=== PATIENT | male | born 1985 | race Caucasian/White ===

== ENCOUNTER → 2019-03-03 | Outpatient (CLI) | payer OTHER | END | disposition home or self-care (01) | LOC: CFH 08:44 | PROVIDERS: ATTEND Nurse Practitioner ==

== ENCOUNTER 2019-04-05 18:30 | Emergency (ER) | payer OTHER ==
[~2019-04-05] VITALS: Ht 177.8 cm; Wt 92.2 kg
--- NOTE | 2019-04-05 18:39 | NUR ---
EKG performed in triage
--- NOTE | 2019-04-05 19:30 | NUR ---
PT AMBULATORY TO ED FROM HOME. C/O L SIDED SHARP CP. POINTS TO JUST UNDER NIPPLE. 8/10 PAIN. RECENT WRIST SX. C/O SOB, WORSE ON EXERT. LUNGS CTAB. SR MONITOR 90-100S. BROTHER HAD OPEN HEART SX 4 TIMES AT YOUNG AGE. PT SMOKER, NOW VAPSE. USED TO DO IV METH/IVDRUGS. QUIT TWO YEARS AGO. AWAITING PROVIDER. CALL [facility]RE[facility] IN [place]ACH.
[2019-04-05 19:48] LABS: BASOPHILS # (AUTO) 0.06 x10^3/uL (0-0.1); BASOPHILS % (AUTO) 0 % (0-1); EOSINOPHILS # (AUTO) 0.08 x10^3/uL (0-0.4); EOSINOPHILS % (AUTO) 1 % (1-7); LYMPHOCYTES # (AUTO) 2.09 x10^3/uL (1-3.4); LYMPHOCYTES % (AUTO) 16 % (22-44); MD NO; MEAN CORPUSCULAR HEMOGLOBIN 30.7 pg (27.5-34.5); MEAN CORPUSCULAR HGB CONC 33.6 g/dL (33.2-36.2); MEAN CORPUSCULAR VOLUME 91.2 fL (81-97); MONOCYTES # (AUTO) 0.82 x10^3/uL (0.2-0.8); MONOCYTES % (AUTO) 6 % (2-9); NEUTROPHILS # (AUTO) 9.93 x10^3/uL (1.8-6.8); NEUTROPHILS % (AUTO) 77 % (42-75); PLATELET COUNT 270 x10^3/uL (130-400); RED BLOOD COUNT 4.86 x10^6/uL (4.38-5.82); RED CELL DISTRIBUTION WIDTH 13.8 % (9.4-14.8)
--- NOTE | 2019-04-05 19:50 | NUR ---
PT TO XR. PLAN FOR CT.
[2019-04-05 19:59] LABS: ALANINE AMINOTRANSFERASE 25 U/L (12-78); ALBUMIN 3.7 g/dL (3.4-5.0); ANION GAP 6 mmol/L (5-15); CALCIUM 8.9 mg/dL (8.5-10.1); CHLORIDE 107 mmol/L (98-107); CREATININE 0.96 mg/dL (0.7-1.3)
[2019-04-05] MEDS ORDERED: ASPIRIN 81 MG TABLET CHEW PO ONE (20:00)
[2019-04-05] MEDS ORDERED: SODIUM CHLORIDE FLUSH 10ML SYR IVF ONE (20:00)
[2019-04-05 20:04] LABS: ALKALINE PHOSPHATASE 66 U/L (45-117); BILIRUBIN,TOTAL 0.4 mg/dL (0.2-1.0); TOTAL PROTEIN 7.8 g/dL (6.4-8.2); TROPONIN I < 0.015 ng/mL (0.000-0.045)
--- NOTE | 2019-04-05 21:05 | NUR ---
back from [place] as
[2019-04-05] MEDS ORDERED: OMNIPAQUE 350 MG/ML, 100ML BOTTLE ONE (21:11)
--- NOTE | 2019-04-05 21:38 | NUR ---
scans/labs wnl. recheck. as
[2019-04-05 21:39] VITALS: BP 126/35
[2019-04-05] MEDS ORDERED: CEPHALEXIN 500 MG CAPSULE PO ONE (22:00)
[2019-04-05] MEDS ORDERED: CEPHALEXIN 500 MG CAPSULE ONE (22:05)
== END 2019-04-05 22:12 | disposition home or self-care (01) ==
LOC: ED 20:58
DX: L03.116 Cellulitis of left lower limb (principal); R07.89 Other chest pain; R00.0 Tachycardia, unspecified
CPT/HCPCS: 36415; 71046; 71275; 80053; 83880; 84484; 85025; 93005; 93971; 99284; Q9967